=== PATIENT | female | born 1995 | race Caucasian/White ===

== ENCOUNTER 2017-06-11 20:34 | Emergency (ER) | payer BC ==
[~2017-06-11] VITALS: Ht 165.1 cm; Wt 72.2 kg
[2017-06-11 20:42] VITALS: BP 133/93; PULSE 99; TEMP 36.8; O2SAT 97; Ht 165.1 cm; Wt 72.2 kg
[2017-06-11] MEDS ORDERED: RANITAB33 PO (21:28)
[2017-06-11] MEDS ORDERED: SENN-63 PO (21:28)
[2017-06-11] MEDS ORDERED: DOCU-94 PO (21:28)
[2017-06-11] MEDS ORDERED: LANS15CA15 PO (21:28)
[2017-06-11] MEDS ORDERED: LINA1CAP (21:28)
[2017-06-11] MEDS ORDERED: BCPILLS PO (21:28)
[2017-06-11] MEDS ORDERED: FLUV25TA2 PO (21:28)
--- NOTE | 2017-06-11 21:40 | EMERGENCY ROOM VISIT NOTE ---
History Report prepared by Quynh: Latoya Rajan Under the Supervision of: Humberto BaezaO. First contact with patient: 21:10 Chief Complaint: FOREIGNBODY ANY BODY PART Stated Complaint: TAMPON STUCK History of Present Illness The patient is a 21 year old female who presents to the Emergency Room with a tampon stuck today. She reports that she put the tampon in last night before bed and that she put another one in today as she had forgotten that she put one in last night. The patient states that she was able to get the second tampon that she put in out, but not the first one as it is too far up now. She reports that she is currently on her menstrual cycle. The patient has no other symptoms. Source of History: patient Onset: today Position: other (vagina) Quality: other (stuck tampon ) Timing: constant Associated Symptoms: No fevers Review of Systems See HPI for pertinent positives & negatives. A total of 6 systems reviewed and were otherwise negative. Past Medical & Surgical Medical Problems: (1) Asthma (2) GERD (gastroesophageal reflux disease) Family History No pertinent family history Social History Smoking Status: Never Smoker Housing Status: lives with roommate Occupation Status: [employer] student Current/Historical Medications Scheduled Control Pills ( Control Pills), 1 TAB PO DAILY Docusate Sodium (Colace), 1 CAP PO BID Fluvoxamine Maleate (Luvox), 1 TAB PO DAILY Lansoprazole (Prevacid), 1 CAP PO DAILY Ranitidine Hcl (Zantac), 1 TAB PO DAILY Sennosides (Senokot), 1 TAB PO BID Miscellaneous Medications Linaclotide (Linzess) Allergies Coded Allergies: Sulfa Antibiotics (Unverified Allergy, Unknown, HIVES, 06/11/17) Physical Exam Vital Signs Date Time Temp Pulse Resp B/P (MAP) Pulse Ox O2 Delivery O2 Flow Rate FiO2 06/11/17 20:42 36.8 99 20 133/93 97 Room Air Physical Exam GENERAL: alert, well appearing, well nourished, no distress, non-toxic LUNGS: Clear to auscultation. Normal chest wall mechanics HEART: no murmurs, S1 normal and S2 normal ABDOMEN: abdomen soft, non-tender, normo-active bowel sounds, no masses, no rebound or guarding. SKIN: no rashes and no bruising UPPER EXTREMITIES: upper extremities are grossly normal. LOWER EXTREMITIES: No pitting edema. NEURO EXAM: Normal sensorium, cranial nerves II-XII intact, normal speech, no weakness of arms, no weakness of legs. : Normal external genitalia. Normal vaginal vault. Tampon noted and removed with ringed forceps. Cervix normal appearing. No discharge, no evidence of cervicitis. No other foreign bodies noted. Medical Decision & Procedures ED Course 2140: The patient was evaluated in room A3. A complete history and physical exam was performed. 2199: She was discharged home. Medical Decision Patient well-appearing here. Did not report any concern for foreign body in any other orifice. No evidence of toxic shock syndrome. Tampon removed without difficulty, no other evidence of abnormal discharge, cervicitis. No other concerning exam findings were reported history to suggest PID or TOA. Discussed with patient importance of appropriate use and removal, symptoms to watch and return for, importance of routine gynecologic exams and screening, she verbalized understanding was agreeable with plan. Medication Reconcilliation Current Medication List: was personally reviewed by me Blood Pressure Screening Patient's blood pressure: Normal blood pressure Impression Primary Impression: History of retained foreign body fully removed Scribe Attestation The scribe's documentation has been prepared under my direction and personally reviewed by me in its entirety. I confirm that the note above accurately reflects all work, treatment, procedures, and medical decision making performed by me. Departure Information Dispostion Home / Self-Care Forms HOME CARE DOCUMENTATION FORM, IMPORTANT VISIT INFORMATION, WORK / SCHOOL INSTRUCTIONS Patient Instructions My [facility] Additional Instructions Please do not use tampons for a few days. Please always be cautious to make sure you remove them after they are inserted within an appropriate timeframe. Do not let them in for more than 6-8 hours. If you develop abnormal vaginal discharge, worsening bleeding, abdominal pain, back pain, fevers or chills, nausea vomiting, or breakout in a rash, please return the emergency room immediately. If you have any other new or concerning symptoms, he may return the emergency room at any time. Please make sure you have routine gynecologic exams and Pap smears performed on a timely basis.
== END 2017-06-11 22:30 | disposition home or self-care (01) ==
LOC: C.EDB 20:36 → C.EDA 22:30
DX: T19.2XXA Foreign body in vulva and vagina, initial encounter (principal); X58.XXXA Exposure to other specified factors, initial encounter; K21.9 Gastro-esophageal reflux disease without esophagitis; J45.909 Unspecified asthma, uncomplicated; Z79.3 Long term (current) use of hormonal contraceptives; Z79.899 Other long term (current) drug therapy; Z88.2 Allergy status to sulfonamides